=== PATIENT | female | born 1945 | race Caucasian/White ===

== ENCOUNTER 2023-04-27 10:03 | Day surgery (SDC) | payer MEDICARE ==
[2023-04-25 11:36] VITALS: BMI 20.7
[~2023-04-27 10:03] MED LIST: LACTATED RINGERS 1,000 ML IV SCH
[2023-04-27] MEDS ORDERED: PROPOFOL 10 MG/ML 20 ML VIAL IV ONE (10:48)
[2023-04-27] MEDS ORDERED: LIDOCAINE 1% INJ 10MG/ML (20 ML MDV) ONE (10:48)
[2023-04-27 11:03] VITALS: TEMP 97
--- NOTE | 2023-04-27 11:16 | P.PCN ---
Date of Procedure: 04/27/23 Procedure(s) Performed: Brief history: Patient is a pleasant 77-year-old white female scheduled for an elective upper endoscopy as well as colonoscopy as a part of evaluation of heartburn/excessive burping and screening for colon cancer Procedure performed: Esophagogastroduodenoscopy with biopsy Colonoscopy Preoperative diagnosis: Heartburn/excessive burping Screening for colon cancer Anesthesia: MAC Procedure: After informed consent was obtained from the patient was brought into the endoscopy unit and IV sedation was administered by anesthesia under continuous monitoring. Initially upper endoscopy was done. The Olympus GF 160 video endoscope was inserted inserted into the mouth and esophagus intubated without any difficulty and was gradually advanced into the stomach and duodenum and carefully examined. The bulb and second part of the duodenum appeared normal. The scope was then withdrawn into the stomach adequately insufflated with air and upon careful examination the antrum had diffuse gastritis and biopsies were done from this area. Mucosa of the body, cardia and fundus appeared normal. The scope was then withdrawn into the esophagus. The GE junction was located at 40 cm to the incisors. It appeared regular with no erythema erosions or ulcerations. Rest of the esophagus appeared normal. Patient tolerated the procedure well. At this time the patient continued to remain sedation. Initial digital rectal examination was normal. Olympus CF 160 video colonoscope was then inserted into the rectum and gradually advanced to the cecum without any difficulty. Careful examination was performed as the scope was gradually being withdrawn. The prep was excellent. The cecum, ascending colon, transverse colon, descending colon, sigmoid colon and rectum appeared normal. Scattered sigmoid diverticulosis. Retroflexion was performed in the rectum and no lesions were noted. Patient tolerated the procedure well. Impression: 1. Upper endoscopy revealed mild antral gastritis but no evidence of esophagitis or Neumann's esophagus 2. Colonoscopy revealed scattered sigmoid diverticula cyst but no evidence of colorectal neoplasia Recommendations: Findings of this examination were discussed with the patient as well [facility] family. She was advised to follow with the biopsy results. Recommend a high- fiber diet and fiber supplements as needed.
[2023-04-27 11:28] VITALS: RESP 16
[2023-04-27 11:52] VITALS: BP 130/61; PULSE 57
== END 2023-04-27 11:59 | disposition home or self-care (01) ==
LOC: ORWHC2ENDO 10:03
PROVIDERS: ATTEND Internal Medicine Gastroenterology
DX: Z12.11 Encounter for screening for malignant neoplasm of colon (principal); K29.50 Unspecified chronic gastritis without bleeding; K57.30 Diverticulosis of large intestine without perforation or abscess without bleeding; Z98.890 Other specified postprocedural states
CPT/HCPCS: 43239; J2001; J2704; G0121; 88305